=== PATIENT | female | born 1950 | race Caucasian/White ===

== ENCOUNTER 2019-09-11 18:59 | Emergency (ER) | payer MEDICARE, BC ==
[~2019-09-11] VITALS: Ht 170.2 cm; Wt 70.2 kg
[2019-09-11 19:26] LABS: BASO % 0.7 % (0.0-1.0); EOS # 0.3 10^3/uL (0.0-0.5); EOS % 5.1 % (0.0-3.0); HEMATOCRIT 40.3 % (36.0-47.0); HEMOGLOBIN 13.2 g/dl (12.0-15.5); LYMPH # 2.1 10^3/uL (1.5-5.0); LYMPH % 33.8 % (24.0-44.0); MEAN CORPUSCULAR HEMOGLOBIN 30.9 pg (27.0-33.0); MEAN CORPUSCULAR HGB CONC 32.8 g/dl (32.0-36.5); MEAN CORPUSCULAR VOLUME 94.4 fl (80.0-96.0); MONO # 0.6 10^3/uL (0.0-0.8); MONO % 9.2 % (0.0-5.0); NEUTROPHILS # 3.1 10^3/uL (1.5-8.5); PLATELET COUNT, AUTOMATED 192 10^3/uL (150-450); RED BLOOD COUNT 4.27 10^6/uL (4.00-5.40); WHITE BLOOD COUNT 6.1 10^3/uL (4.0-10.0)
[2019-09-11] MEDS ORDERED: NS 1,000 ML IV ONE (19:30)
[2019-09-11 19:43] LABS: INR 0.97; PROTHROMBIN TIME 12.6 SECONDS (11.8-14.0)
[2019-09-11 19:44] LABS: PARTIAL THROMBOPLASTIN TIME 28.1 SECONDS (25.0-38.4)
--- NOTE | 2019-09-11 19:55 | REPVR ---
PROCEDURE INFORMATION: Exam: CT Cervical Spine Without Contrast Exam date and time: 09/11/2019 7:31 PM Age: 69 years old Clinical indication: Injury or trauma; Fall; Initial encounter; Blunt trauma TECHNIQUE: Imaging protocol: Computed tomography images of the cervical spine without contrast. Radiation optimization: All CT scans at this facility use at least one of these dose optimization techniques: automated exposure control; mA and/or kV adjustment per patient size (includes targeted exams where dose is matched to clinical indication); or iterative reconstruction. COMPARISON: No relevant prior studies available. FINDINGS: Vertebrae: Mild levoconvex curvature. Non-specific straightening. Vertebral body height and AP alignment is preserved. Moderate degenerative change about the dens. Mild prevertebral osteophytosis. There are bilateral facet joint degenerative changes. No acute cervical spine fracture. Discs/Spinal canal/Neural foramina: No definite significant central canal stenosis within limitations of technique. Nondisplaced occipital bone fracture. Soft tissues: Unremarkable. Lungs: Scarring at the lung apices. Pleural space: No visible pneumothorax. IMPRESSION: 1. No acute cervical spine fracture. 2. Nondisplaced occipital bone fracture extending to the foramen magnum. Electronically signed by: Alfredo Hayden On 09/11/2019 19:55:19 PM
--- NOTE | 2019-09-11 19:55 | REPVR ---
PROCEDURE INFORMATION: Exam: CT Head Without Contrast Exam date and time: 09/11/2019 7:31 PM Age: 69 years old Clinical indication: Injury or trauma; Fall; Initial encounter; Blunt trauma (contusions or hematomas) TECHNIQUE: Imaging protocol: Computed tomography of the head without contrast. Radiation optimization: All CT scans at this facility use at least one of these dose optimization techniques: automated exposure control; mA and/or kV adjustment per patient size (includes targeted exams where dose is matched to clinical indication); or iterative reconstruction. COMPARISON: No relevant prior studies available. FINDINGS: Brain: Right cerebral convexity acute subdural hemorrhage measures up to 4 mm in thickness. There is acute subarachnoid hemorrhage involving the bilateral frontal lobes and the left temporal lobe. Small amount of acute subarachnoid hemorrhage at the suprasellar cistern/interpeduncular fossa. Small hemorrhagic contusions at the inferior frontal lobes measuring up to 5 mm. No significant midline shift. Ventricles: Normal. No ventriculomegaly. Bones/joints: Nondisplaced right occipital bone fractures the right of midline extending to the foramen magnum. Sinuses: Nonspecific sphenoid sinus fluid. Mastoid air cells: Visualized mastoid air cells are well aerated. Soft tissues: Posterior scalp soft tissue injury eccentric towards the right. IMPRESSION: 1. Right cerebral convexity acute subdural hemorrhage measures up to 4 mm. 2. Acute subarachnoid hemorrhage involving the bilateral frontal lobes and the left temporal lobe. Small amount of acute subarachnoid hemorrhage at the suprasellar cistern/interpeduncular fossa. 3. There are small hemorrhagic contusions involving the bilateral inferior frontal lobes measuring up to 5 mm. 4. Nondisplaced occipital bone fracture to the right of midline extending to the foramen magnum. THIS REPORT CONTAINS FINDINGS THAT MAY BE CRITICAL TO PATIENT CARE. The findings were verbally communicated via telephone conference with MARGRET GIBBONS at 7:55 PM EST on 09/11/2019. The findings were acknowledged and understood. Electronically signed by: Alfredo Hayden On 09/11/2019 19:55:14 PM
[2019-09-11 20:16] LABS: ALBUMIN 3.5 GM/DL (3.2-5.2); ALT/SGPT 29 U/L (12-78); BILIRUBIN,DIRECT < 0.1 MG/DL (0.0-0.2); BILIRUBIN,TOTAL 0.2 MG/DL (0.2-1.0); BLOOD UREA NITROGEN 13 MG/DL (7-18); CARBON DIOXIDE LEVEL 24 MEQ/L (21-32); CHLORIDE LEVEL 108 MEQ/L (98-107); CK-MB VALUE MASS 1.9 NG/ML (<3.6); CPK CREATINE PHOSPHOKINASE 151 U/L (26-192); CREATININE FOR GFR 0.64 MG/DL (0.55-1.30); ETHYL ALCOHOL (ETHANOL) 0.069 % (0.000-0.010); GLOMERULAR FILTRATION RATE > 60.0 (>39); GLUCOSE, FASTING 97 MG/DL (70-100); LIPASE 181 U/L (73-393); MB/CK RELATIVE INDEX 1.26 (< OR =4); POTASSIUM SERUM 3.6 MEQ/L (3.5-5.1); SODIUM LEVEL 143 MEQ/L (136-145); TOTAL PROTEIN 6.6 GM/DL (6.4-8.2); TROPONIN I < 0.02 NG/ML (< 0.10)
[2019-09-11] MEDS ORDERED: ONDANSETRON 4MG/2ML VIAL IV ONE (20:30)
[2019-09-11 20:40] VITALS: BP 120/89
[2019-09-11 20:41] LABS: AMPHETAMINES LEVEL URINE NEGATIVE (NEGATIVE); BARBITURATES URINE NEGATIVE (NEGATIVE); BENZODIAZEPINES URINE NEGATIVE (NEGATIVE); CANNABINOIDS URINE NEGATIVE (NEGATIVE); COCAINE METABOLITE URINE NEGATIVE (NEGATIVE); METHADONE URINE NEGATIVE (NEGATIVE); OPIATES URINE NEGATIVE (NEGATIVE); PHENCYCLIDINE URINE NEGATIVE (NEGATIVE)
--- NOTE | 2019-09-12 16:07 | ECGEPIP ---
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
== END 2019-09-11 20:56 | disposition short-term general hospital (02) ==
LOC: EDBD 18:59 → M ED 18:59
DX: S02.119A Unspecified fracture of occiput, initial encounter for closed fracture (principal); S06.6X1A Traumatic subarachnoid hemorrhage with loss of consciousness of 30 minutes or less, initial encounter; W19.XXXA Unspecified fall, initial encounter; Y92.814 Boat as the place of occurrence of the external cause; Y93.9 Activity, unspecified; Y99.9 Unspecified external cause status; I48.91 Unspecified atrial fibrillation; R94.31 Abnormal electrocardiogram [ECG] [EKG]; F10.10 Alcohol abuse, uncomplicated; Z88.2 Allergy status to sulfonamides
CPT/HCPCS: 70450; 72125; 80048; 80076; 80307; 81001; 82550; 82553; 83690; 84484; 85025; 85610; 85730; 86850; 86900; 86901; 93005; 93041; 94760; 96361; 96374; 99285; G0480; J2405

== ENCOUNTER → 2019-10-29 | Outpatient (RCR) | payer BC, MEDICARE | LOC: M OT 10-04 13:04 → M PT 10-04 13:40 → M ST 10-04 13:40 → M PT 10-20 10:22 | PROVIDERS: ATTEND Nurse Practitioner Family | DX: S06.9X9A Unspecified intracranial injury with loss of consciousness of unspecified duration, initial encounter (principal); X58.XXXA Exposure to other specified factors, initial encounter; Y92.9 Unspecified place or not applicable ==

== ENCOUNTER 2019-11-03 10:30 | Outpatient (RCR) | payer MEDICARE | END 2019-11-29 | LOC: M PT 10:30 | PROVIDERS: ATTEND Nurse Practitioner Family | DX: I61.8 Other nontraumatic intracerebral hemorrhage (principal) ==

== ENCOUNTER → 2020-09-25 | Outpatient (REF) | payer MEDICARE ==
[2020-09-25 13:25] LABS: BASO # 0.1 10^3/uL (0.0-0.2); BASO % 1.1 % (0.0-1.0); EOS # 0.2 10^3/uL (0.0-0.5); EOS % 3.7 % (0.0-3.0); HEMATOCRIT 43.9 % (36.0-47.0); HEMOGLOBIN 13.8 g/dl (12.0-15.5); LYMPH # 1.7 10^3/uL (1.5-5.0); LYMPH % 30.7 % (24.0-44.0); MEAN CORPUSCULAR HEMOGLOBIN 30.3 pg (27.0-33.0); MEAN CORPUSCULAR HGB CONC 31.4 g/dl (32.0-36.5); MEAN CORPUSCULAR VOLUME 96.3 fl (80.0-96.0); MONO # 0.5 10^3/uL (0.0-0.8); NEUTROPHILS # 3.1 10^3/uL (1.5-8.5); NEUTROPHILS % 55.1 % (36.0-66.0); PLATELET COUNT, AUTOMATED 257 10^3/uL (150-450); RED BLOOD COUNT 4.56 10^6/uL (4.00-5.40); WHITE BLOOD COUNT 5.6 10^3/uL (4.0-10.0)
[2020-09-25 15:04] LABS: ALBUMIN 3.7 GM/DL (3.2-5.2); ALT/SGPT 21 U/L (12-78); BILIRUBIN,TOTAL 0.5 MG/DL (0.2-1.0); BLOOD UREA NITROGEN 13 MG/DL (7-18); CALCIUM LEVEL 8.8 MG/DL (8.8-10.2); CARBON DIOXIDE LEVEL 28 MEQ/L (21-32); CHLORIDE LEVEL 107 MEQ/L (98-107); CHOLESTEROL LEVEL 247 MG/DL (<200); CREATININE FOR GFR 0.71 MG/DL (0.55-1.30); GLOMERULAR FILTRATION RATE > 60.0 (>39); GLUCOSE, FASTING 85 MG/DL (70-100); HDL CHOLESTEROL 50 MG/DL (>40); LDL CHOLESTEROL 169 MG/DL (<100); NON-HDL-C 197 MG/DL; POTASSIUM SERUM 4.4 MEQ/L (3.5-5.1); SODIUM LEVEL 140 MEQ/L (136-145); TOTAL 25(OH) VITAMIN D 39.5 NG/ML (30.0-100.0); TOTAL PROTEIN 6.6 GM/DL (6.4-8.2); TRIGLYCERIDES LEVEL 141 MG/DL (<150)
== END ==
LOC: M SFHCADAM 08:34
PROVIDERS: ATTEND Physician Assistant Medical
DX: E03.9 Hypothyroidism, unspecified (principal); M81.0 Age-related osteoporosis without current pathological fracture; Z13.220 Encounter for screening for lipoid disorders; Z13.0 Encounter for screening for diseases of the blood and blood-forming organs and certain disorders involving the immune mechanism

== ENCOUNTER → 2020-09-26 | Outpatient (CLI) | payer MEDICARE ==
--- NOTE | 2020-09-27 14:07 | REPVR ---
PROCEDURE INFORMATION: Exam: MR Lumbar Spine Without Contrast Exam date and time: 09/26/2020 11:45 AM Age: 70 years old Clinical indication: Low back pain; Additional info: Lbp TECHNIQUE: Imaging protocol: Multiplanar magnetic resonance images of the lumbar spine without intravenous contrast. COMPARISON: MRI-Spine, L.S. without con 09/25/2014 11:58 PM FINDINGS: Vertebrae: 8 mm of grade 1 degenerative anterolisthesis of L4 on L5, progressive since prior. No acute fracture seen. Suggestion of an old sacral fracture at S3 level, new since prior. Spinal cord: The conus medullaris ends normally. There is disc desiccation at L4-L5 and L5-S1. Disc height loss and spondylosis is [id number] at L5-S1, mild at L4-L5. L1-L2: No significant interval change. Mild right facet arthropathy. No stenoses. L2-L3: No significant interval change. No stenoses. L3-L4: No significant interval change. Mild right facet arthropathy. No stenoses. L4-L5: Progressive severe facet arthropathy and ligamentum flavum buckling. Bilateral facet joint effusion. Approximate 5 mm intracanalicular synovial cyst on the right does not contribute to focal mass effect. Progressive anterolisthesis with pseudobulging of the intervertebral disc. Progressive central spinal canal stenosis, [id number] in degree. Progressive lateral recess narrowing near the L5 nerve roots. Mild right neural foraminal stenosis, the exiting right L4 nerve root may contact far lateral bulging disc. No significant left neural foraminal narrowing. L5-S1: No significant interval change. [id number]-[id number] disc osteophyte complex as well as marked facet arthropathy. The central spinal canal remains patent. No evidence of S1 nerve root impingement. Mild left neural foraminal stenosis. No significant right neural foraminal narrowing. Soft tissues: Unremarkable. IMPRESSION: 1. Progressive grade 1 degenerative anterolisthesis of L4 on L5. 2. Progressive central spinal canal and lateral recess stenoses at L4-L5. Electronically signed by: Nat Vega On 09/27/2020 14:06:48 PM
== END ==
LOC: M PLAIMG 10:43
PROVIDERS: ATTEND Physician Assistant Medical
DX: M54.5 Low back pain (principal); M71.38 Other bursal cyst, other site; M48.061 Spinal stenosis, lumbar region without neurogenic claudication

== ENCOUNTER → 2020-11-24 | Outpatient (REF) | payer MEDICARE ==
[2020-11-24 17:45] LABS: FREE T4 0.95 NG/DL (0.76-1.46); THYROID STIMULATING HORMONE 1.7 uIU/ML (0.358-3.740)
== END ==
LOC: M SFHCPLAZ 13:56 → M SFHCADAM 14:03
PROVIDERS: ATTEND Physician Assistant Medical
DX: E03.9 Hypothyroidism, unspecified (principal)

== ENCOUNTER 2021-03-08 06:49 | Day surgery (SDC) | payer MEDICARE ==
[~2021-03-08] VITALS: Ht 167.6 cm; Wt 67.6 kg
[~2021-03-08 06:49] MED LIST: BIOT1000 PO; ESSETAB4 PO; FISH1000 PO; IBAN150T6 PO; LEVO100T5 PO; NS 1,000 ML IV ONE; PARO20TA3 PO
[2021-03-08] MEDS ORDERED: LIDOCAINE 2% 100MG/5ML SDV (FOR ANES.) As Ordered ONE (07:58)
[2021-03-08] MEDS ORDERED: propofoL 200 MG/20 ML VIAL As Ordered ONE (07:58)
[2021-03-08] MEDS ORDERED: GLYCOPYRROLATE INJ 0.2 MG/ML 2 ML VIAL As Ordered ONE (08:08)
[2021-03-08 08:53] VITALS: BP 121/85
== END 2021-03-08 08:55 | disposition home or self-care (01) ==
LOC: M OPP 06:49
PROVIDERS: ATTEND Internal Medicine Gastroenterology
DX: K57.20 Diverticulitis of large intestine with perforation and abscess without bleeding (principal); Q43.8 Other specified congenital malformations of intestine; Z80.0 Family history of malignant neoplasm of digestive organs; E78.5 Hyperlipidemia, unspecified; F32.A Depression, unspecified; F41.9 Anxiety disorder, unspecified; Z85.850 Personal history of malignant neoplasm of thyroid; Z88.2 Allergy status to sulfonamides; Z79.899 Other long term (current) drug therapy

== ENCOUNTER → 2021-11-21 | Outpatient (REF) | payer MEDICARE ==
[~2021-11-21] MED LIST changes: -NS 1,000 ML IV ONE
[2021-11-21 16:39] LABS: BASO % 0.7 % (0.0-1.0); EOS # 0.2 10^3/uL (0.0-0.5); EOS % 3.1 % (0.0-3.0); HEMOGLOBIN 13.7 g/dl (12.0-15.5); LYMPH # 1.5 10^3/uL (1.5-5.0); LYMPH % 25.4 % (24.0-44.0); MEAN CORPUSCULAR HEMOGLOBIN 30.4 pg (27.0-33.0); MEAN CORPUSCULAR HGB CONC 31.9 g/dl (32.0-36.5); MEAN CORPUSCULAR VOLUME 95.3 fl (80.0-96.0); MONO # 0.6 10^3/uL (0.0-0.8); MONO % 9.9 % (2.0-8.0); NEUTROPHILS # 3.5 10^3/uL (1.5-8.5); NEUTROPHILS % 60.4 % (36.0-66.0); PLATELET COUNT, AUTOMATED 212 10^3/uL (150-450); RED BLOOD COUNT 4.51 10^6/uL (4.00-5.40); WHITE BLOOD COUNT 5.8 10^3/uL (4.0-10.0)
[2021-11-21 17:50] LABS: ALBUMIN 3.8 GM/DL (3.2-5.2); ALT/SGPT 27 U/L (12-78); BILIRUBIN,TOTAL 0.4 MG/DL (0.2-1.0); BLOOD UREA NITROGEN 16 MG/DL (7-18); CALCIUM LEVEL 9.3 MG/DL (8.8-10.2); CARBON DIOXIDE LEVEL 27 MEQ/L (21-32); CHLORIDE LEVEL 102 MEQ/L (98-107); CHOLESTEROL LEVEL 249 MG/DL (<200); CHOLESTEROL RISK RATIO 4.788 (<5); CREATININE FOR GFR 0.69 MG/DL (0.55-1.30); GLOMERULAR FILTRATION RATE > 60.0 (>39); GLUCOSE, FASTING 79 MG/DL (70-100); HDL CHOLESTEROL 52 MG/DL (>40); LDL CHOLESTEROL 166 MG/DL (<100); NON-HDL-C 197 MG/DL; SODIUM LEVEL 138 MEQ/L (136-145); TOTAL PROTEIN 6.6 GM/DL (6.4-8.2); TRIGLYCERIDES LEVEL 157 MG/DL (<150)
== END ==
LOC: M SFHCADAM 13:00
PROVIDERS: ATTEND Physician Assistant
DX: E03.9 Hypothyroidism, unspecified (principal); E78.2 Mixed hyperlipidemia; M51.36 Other intervertebral disc degeneration, lumbar region

== ENCOUNTER → 2022-11-12 | Outpatient (REF) | payer MEDICARE ==
[2022-11-12 12:43] LABS: BASO # 0.1 10^3/uL (0.0-0.2); BASO % 0.6 % (0.0-1.0); EOS # 0.3 10^3/uL (0.0-0.5); EOS % 3.4 % (0.0-3.0); HEMATOCRIT 43.6 % (36.0-47.0); HEMOGLOBIN 13.9 g/dl (12.0-15.5); LYMPH # 2.7 10^3/uL (1.5-5.0); LYMPH % 32.7 % (24.0-44.0); MEAN CORPUSCULAR HGB CONC 31.9 g/dl (32.0-36.5); MEAN CORPUSCULAR VOLUME 97.1 fl (80.0-96.0); MONO # 0.7 10^3/uL (0.0-0.8); MONO % 7.9 % (2.0-8.0); NEUTROPHILS # 4.5 10^3/uL (1.5-8.5); NEUTROPHILS % 54.7 % (36.0-66.0); PLATELET COUNT, AUTOMATED 229 10^3/uL (150-450); RED BLOOD COUNT 4.49 10^6/uL (4.00-5.40); WHITE BLOOD COUNT 8.3 10^3/uL (4.0-10.0)
[2022-11-12 12:45] LABS: ALBUMIN 3.6 G/DL (3.2-5.2); ALKALINE PHOSPHATASE 48 U/L (46-116); ALT/SGPT 22 U/L (7.0-40); AST/SGOT 9 U/L (<34); BILIRUBIN,TOTAL 0.7 MG/DL (0.3-1.2); BLOOD UREA NITROGEN 14 MG/DL (9-23); CALCIUM LEVEL 8.9 MG/DL (8.3-10.6); CARBON DIOXIDE LEVEL 31 MMOL/L (20-31); CHLORIDE LEVEL 104 MMOL/L (98-107); CHOLESTEROL LEVEL 173 MG/DL (<200); CHOLESTEROL RISK RATIO 3.04 (<5); CREATININE FOR GFR 0.75 MG/DL (0.55-1.30); GLOMERULAR FILTRATION RATE > 60.0 (>39); GLUCOSE, FASTING 80 MG/DL (74-106); HDL CHOLESTEROL 56.9 MG/DL (>40); LDL CHOLESTEROL 82.3 MG/DL (<100); NON-HDL-C 116.1 MG/DL; SODIUM LEVEL 142 MMOL/L (136-145); THYROID STIMULATING HORMONE 0.808 uIU/ML (0.55-4.78); TOTAL 25(OH) VITAMIN D 28.6 NG/ML (20.0-100.0); TOTAL PROTEIN 6.2 G/DL (5.7-8.2); TRIGLYCERIDES LEVEL 169 MG/DL (<150)
== END ==
LOC: M SFHCADAM 09:33
PROVIDERS: ATTEND Physician Assistant Medical
DX: R41.3 Other amnesia (principal); E03.9 Hypothyroidism, unspecified; M81.0 Age-related osteoporosis without current pathological fracture; E78.2 Mixed hyperlipidemia

== ENCOUNTER → 2023-08-21 | Outpatient (REF) | payer MEDICARE | LOC: M SFHCPLAZ 10:12 | PROVIDERS: ATTEND Student in an Organized Health Care Education/Training Program | DX: R41.3 Other amnesia (principal); E03.9 Hypothyroidism, unspecified; M81.0 Age-related osteoporosis without current pathological fracture; E55.9 Vitamin D deficiency, unspecified; W57.XXXA Bitten or stung by nonvenomous insect and other nonvenomous arthropods, initial encounter ==

== ENCOUNTER → 2023-09-05 | Outpatient (CLI) | payer MEDICARE ==
[2023-09-05 14:35] LABS: BASO % 0.6 % (0.0-1.0); EOS # 0.2 10^3/uL (0.0-0.5); EOS % 3.2 % (0.0-3.0); HEMATOCRIT 43.7 % (36.0-47.0); HEMOGLOBIN 14.1 g/dl (12.0-15.5); LYMPH # 1.6 10^3/uL (1.5-5.0); LYMPH % 28.9 % (24.0-44.0); MEAN CORPUSCULAR HEMOGLOBIN 30.6 pg (27.0-33.0); MEAN CORPUSCULAR HGB CONC 32.3 g/dl (32.0-36.5); MEAN CORPUSCULAR VOLUME 94.8 fl (80.0-96.0); MONO # 0.5 10^3/uL (0.0-0.8); MONO % 8.6 % (2.0-8.0); NEUTROPHILS # 3.2 10^3/uL (1.5-8.5); NEUTROPHILS % 58.5 % (36.0-66.0); PLATELET COUNT, AUTOMATED 205 10^3/uL (150-450); RED BLOOD COUNT 4.61 10^6/uL (4.00-5.40); WHITE BLOOD COUNT 5.4 10^3/uL (4.0-10.0)
[2023-09-05 14:58] LABS: ALBUMIN 3.7 G/DL (3.2-5.2); ALKALINE PHOSPHATASE 63 U/L (46-116); ALT/SGPT 22 U/L (7.0-40); AST/SGOT 11 U/L (<34); BILIRUBIN,TOTAL 0.8 MG/DL (0.3-1.2); BLOOD UREA NITROGEN 15 MG/DL (9-23); CALCIUM LEVEL 9.4 MG/DL (8.3-10.6); CARBON DIOXIDE LEVEL 29 MMOL/L (20-31); CHLORIDE LEVEL 105 MMOL/L (98-107); CHOLESTEROL LEVEL 154 MG/DL (<200); CHOLESTEROL RISK RATIO 3.18 (<5); CREATININE FOR GFR 0.66 MG/DL (0.55-1.30); GLOMERULAR FILTRATION RATE > 60.0 (>39); GLUCOSE, FASTING 80 MG/DL (74-106); HDL CHOLESTEROL 48.3 MG/DL (>40); LDL CHOLESTEROL 80.9 MG/DL (<100); NON-HDL-C 105.7 MG/DL; POTASSIUM SERUM 4.5 MMOL/L (3.5-5.1); SODIUM LEVEL 141 MMOL/L (136-145); THYROID STIMULATING HORMONE 0.666 uIU/ML (0.55-4.78); TOTAL 25(OH) VITAMIN D 44.7 NG/ML (20.0-100.0); TOTAL PROTEIN 6.4 G/DL (5.7-8.2); TRIGLYCERIDES LEVEL 124 MG/DL (<150)
== END ==
LOC: M PLALAB 11:30
PROVIDERS: ATTEND Student in an Organized Health Care Education/Training Program
DX: R41.3 Other amnesia (principal); E03.9 Hypothyroidism, unspecified; M81.0 Age-related osteoporosis without current pathological fracture; E55.9 Vitamin D deficiency, unspecified; W57.XXXA Bitten or stung by nonvenomous insect and other nonvenomous arthropods, initial encounter

== ENCOUNTER → 2025-01-04 | Outpatient (REF) | payer MEDICARE ==
[~2025-01-04] MED LIST changes: -BIOT1000 PO; +BIOT10002 PO; +IBAN150T10 PO; -IBAN150T6 PO
[2025-01-04 13:30] LABS: BASO # 0.1 10^3/uL (0.0-0.2); BASO % 1.1 % (0.0-1.0); EOS # 0.2 10^3/uL (0.0-0.5); EOS % 3.8 % (0.0-3.0); LYMPH # 1.3 10^3/uL (1.5-5.0); LYMPH % 26.6 % (24.0-44.0); MONO # 0.5 10^3/uL (0.0-0.8); MONO % 10.4 % (2.0-8.0); NEUTROPHILS # 2.7 10^3/uL (1.5-8.5); NEUTROPHILS % 57.9 % (36.0-66.0); PLATELET COUNT, AUTOMATED 224 10^3/uL (150-450)
[2025-01-04 15:37] LABS: ALT/SGPT 32.0 U/L (7.0-40); AST/SGOT 22.0 U/L (<34); CALCIUM LEVEL 9.0 MG/DL (8.3-10.6); CARBON DIOXIDE LEVEL 31.0 MMOL/L (20-31); CHLORIDE LEVEL 103.0 MMOL/L (98-107); CHOLESTEROL LEVEL 196.0 MG/DL (<200); CHOLESTEROL RISK RATIO 3.79 (<5); CREATININE FOR GFR 0.72 MG/DL (0.55-1.30); GLOMERULAR FILTRATION RATE 87.1 (>39); LDL CHOLESTEROL 118.0 MG/DL (<100); NON-HDL-C 144.4 MG/DL; POTASSIUM SERUM 3.8 MMOL/L (3.5-5.1); SODIUM LEVEL 142.0 MMOL/L (136-145); TOTAL 25(OH) VITAMIN D 43.4 NG/ML (20.0-100.0); TRIGLYCERIDES LEVEL 132.0 MG/DL (<150)
[2025-01-04 15:38] LABS: FREE T4 1.47 NG/DL (0.89-1.76)
== END ==
LOC: M SFHCADAM 09:37
PROVIDERS: ATTEND Physician Assistant Medical
DX: E03.9 Hypothyroidism, unspecified (principal); R41.3 Other amnesia; M81.0 Age-related osteoporosis without current pathological fracture; E78.2 Mixed hyperlipidemia